=== PATIENT | female | born 1950 | race Caucasian/White ===

== ENCOUNTER 2017-10-18 19:51 | Emergency (ER) | payer OTHER ==
[~2017-10-18] VITALS: Ht 160 cm; Wt 81.7 kg
[~2017-10-18 19:51] MED LIST: BACTRIM DS TAB1 EACH PO; CYMBALTA30 MG PO; KLONOPIN0.5 MG PO; MACROBID 100 M100 M1 PO; MIRALAX17 GM PO; NEURONTIN 300300 M1 PO; TRAMADOL 50 MG50 MG PO
[2017-10-18] MEDS ORDERED: CYMBALTA60 MG PO (21:14)
[2017-10-18] MEDS ORDERED: ULTRAM 50MG TAB50 MG PO (21:15)
[2017-10-18] MEDS ORDERED: ZANTAC 150MG T150 MG PO (21:15)
[2017-10-18 21:28] LABS: HEMATOCRIT 43.8 % (37.0-47.0); HEMOGLOBIN 14.6 gm/dL (12.0-15.0); MCH 31.5 pg (26.0-34.0); MCHC 33.3 g/dL (28.0-37.0); MCV 94.5 fL (80.0-100.0); RBC 4.64 mil/uL (4.20-5.00); RDW 14.4 % (10.5-14.5); WBC 6.8 thou/uL (4.0-11.0)
[2017-10-18 21:34] LABS: CALCIUM 8.7 mg/dL (8.5-10.1); CREATININE 0.9 mg/dL (0.6-1.0); POTASSIUM 3.9 mmol/L (3.5-5.1)
[2017-10-18 21:40] LABS: ALBUMIN 3.6 g/dL (3.4-5.0); TOTAL BILIRUBIN 0.2 mg/dL (<0.1-1.0); TOTAL PROTEIN 6.9 g/dL (6.4-8.2)
[2017-10-18] MEDS ORDERED: ISENTRESS400 MG PER TUBE (21:49)
[2017-10-18] MEDS ORDERED: EMTRIVA200 MG PO (21:49)
[2017-10-18] MEDS ORDERED: TENOFOVIR DISO300 MG PO (21:49)
[2017-10-18 22:51] VITALS: BP 127/88
[2017-10-21 08:06] LABS: HIV ANTIBODY Non Reactive (Non Reactive)
== END 2017-10-18 22:51 | disposition home or self-care (01) ==
LOC: ER 19:51
PROVIDERS: Physician Assistant
DX: Z20.6 Contact with and (suspected) exposure to human immunodeficiency virus [HIV] (principal); F32.9 Major depressive disorder, single episode, unspecified

== ENCOUNTER 2018-05-16 03:47 | Inpatient (IN) | payer OTHER ==
[~2018-05-16] VITALS: Ht 160 cm; Wt 80.7 kg
[~2018-05-16 03:47] MED LIST changes: +CYMBALTA60 MG PO; +EMTRIVA200 MG PO; +ISENTRESS400 MG PER TUBE; +TENOFOVIR DISO300 MG PO; +ULTRAM 50MG TAB50 MG PO; +ZANTAC 150MG T150 MG PO
[2018-05-16 03:48] VITALS: BP 185/88
[2018-05-16] MEDS ORDERED: TYLENOL EXTRA500 MG PO (05:50)
[2018-05-16] MEDS ORDERED: TRAMADOL 50 MG50 MG PO (05:50)
[2018-05-16 06:39] VITALS: BP 144/80
[2018-05-16 07:20] VITALS: BP 144/78
--- NOTE | 2018-05-16 07:23 | NUR ---
ATTEMPTED TO CALL REPORT; PER [facility], "THEY ARE IN A ROOM AND WILL HAVE TO CALL ME BACK"
[2018-05-16 08:17] VITALS: BP 119/83
--- NOTE | 2018-05-16 09:52 | NUR ---
68 YO FEMALE ADMITTED BY W/C FROM ER. A&OX4, FIELD IV IN L FA INTACT. PT IS BLIND BILAT. HAS C/I DOG AND DAUGHTER AT THE BEDSIDE. C/O PAIN TO R LE AT 4/10 WHEN NOT MOVING. ORIENTED PT TO ROOM CALL LIGHT.
[2018-05-16 10:16] LABS: ABSOLUTE NEUTROPHILS 10.2 thou/uL (1.4-8.2); BASOPHILS 0.4 % (0.0-2.0); EOSINOPHILS 0.1 % (0.0-3.0); HEMATOCRIT 40.8 % (37.0-47.0); HEMOGLOBIN 13.6 gm/dL (12.0-15.0); LYMPHOCYTES 7.1 % (24.0-44.0); MCH 30.9 pg (26.0-34.0); MCHC 33.2 g/dL (28.0-37.0); MCV 92.9 fL (80.0-100.0); MONOCYTES 10.3 % (1.0-8.0); PLATELET COUNT 275 thou/uL (150-400); POLYS 82.1 % (36.0-66.0); RBC 4.39 mil/uL (4.20-5.00); RDW 14.2 % (10.5-14.5); WBC 12.4 thou/uL (4.0-11.0)
[2018-05-16 10:19] LABS: URINE BILIRUBIN NEGATIVE (Negative); URINE BLOOD TRACE (Negative); URINE CLARITY SL HAZY; URINE COLOR YELLOW; URINE GLUCOSE-RANDOM* NEGATIVE (Negative); URINE KETONES NEGATIVE (Negative); URINE LEUKOCYTES-REFLEX 3+ (Negative); URINE NITRITE-REFLEX NEGATIVE (Negative); URINE PROTEIN (DIPSTICK) NEGATIVE (Negative); URINE SPECIFIC GRAVITY 1.015 (1.005-1.035); URINE UROBILINOGEN 0.2 E.U./dl (0.2-1.0)
[2018-05-16 10:27] LABS: CALCIUM 8.7 mg/dL (8.5-10.1); CREATININE 0.8 mg/dL (0.6-1.0); MAGNESIUM 2.3 mg/dL (1.8-2.4); POTASSIUM 3.7 mmol/L (3.5-5.1)
[2018-05-16 10:57] LABS: FOLIC ACID 13.1 ng/mL (8.6-58.9)
[2018-05-16 11:08] LABS: SQUAMOUS 4-10 Moderate /LPF (0-3)
[2018-05-16 11:09] LABS: AMORPHOUS URATES Few /LPF (None Seen); CASTS None Seen /LPF (None Seen); URINE RBC 0-2 Rare /HPF (0-2); URINE WBC-REFLEX 6-15 Few /HPF (0-5)
--- NOTE | 2018-05-16 11:55 | NUR ---
ASSESSMENT-PT LIVES IN A HOUSE WITH HER GRANDSON. PT IS BLIND AND HAS HER SERVICE DOG NATHAN AT THE BEDSIDE WELL HER DTR. PT SAYS SHE PLANS TO HAVE A RAMP INSTALLED TO GET IN THE HOME BUT CURRENTLY HAS 5 STEPS WITH A RAIL TO ENTER. PT SAYS SHE HAS 2 FRIENDS THAT ASSIST HER BUT HAS LITTLE HELP FROM HER CHILDREN. PT USES [employer], THE BUS OR [facility] FOR TRANSPORTATION. PT HAS HAD [facility] IN THE PAST. PT SAYS SHE TRIPPED WHILE VACUUMING. FOLLOWING TO ASSIST WITH DC PLANNING. PT TO HAVE MRI TODAY.
[2018-05-16 16:41] VITALS: BP 138/84
[2018-05-16 19:19] VITALS: BP 125/79
[2018-05-17 03:47] VITALS: BP 140/77
--- NOTE | 2018-05-17 04:07 | NUR ---
GIVEN IV TORADOL, PO HYDROCODONE FOR RIGHT HIP PAIN WITH EFFECTIVE RELIEF OF DISCOMFORT. ABLE TO SLEEP THRU NIGHT, ASSIST IN TURNING IN BED TO USE BEDPAN. PULLED UP IN BED, REPOSITIONED X 2 STAFF ASSIST. DENIES NAUSEA.
[2018-05-17 07:10] VITALS: BP 96/63
--- NOTE | 2018-05-17 14:21 | NUR ---
PT IS INTERESTED IN A SKILLED FACILTY IN [place] WHERE HER NIECE WORKS. [facility]-[phone], FAX # [phone]. HER SISTER LIVES [place] FROM THE [facility]OSPITAL THERE TOO. PT IS ALSO INTERESTED IN [facility]. ASKED DC [employer]ERSON [employer] TO FAX REFERRALS TO BOTH FACILITIES.
--- NOTE | 2018-05-17 15:19 | NUR ---
FAXED REFERRAL TO [facility] LEFT MSG WITH JONE IN ADM. THAT REFERRAL SENT AND ANTICIPATE DC ON FRIDAY 05/19. FAXED REFERRAL TO [facility] SPOKE WITH JESUS MANUEL IN ADM. AND SHE RECEIVED REFERRAL AND WILL REVIEW. DCP TO FOLLOW.
[2018-05-17 16:16] VITALS: BP 116/67
--- NOTE | 2018-05-17 16:37 | NUR ---
PT. TO POSSIBLY DISCHARGE SUNDAY TO [facility] RN TO FAX DC ORDERS/SUMMARY TO [phone] AND CALL REPORT TO [phone]. FACILITY TO SET UP TRANSPORTATION. IF ANY QUESTIONS CALL BALL ASSEMBLER AND HAVE ADMITTING COORDINATOR MOVING PICTURE PRODUCER PAGED.
[2018-05-17 20:02] VITALS: BP 143/66
--- NOTE | 2018-05-18 00:26 | NUR ---
ASSUMED PT CARE 1900. PT ALERT AND ORIENTED. REASSESSMENT COMPLETED. IV DRESSING C/D/I, NO SIGNS OF INFILTRATION. PT AWARE OF LOCATION OF BEDSIDE TABLE WITH CUP AND PERSONAL BELONINGS. PT AWARE OF LOCATION OF CALL LIGHT. PT REPORTS MILD PAIN, WELL CONTROLLED WITH MEDICATION. PT ABLE TO MOVE AND REPOSITION WELL WITH MINIMAL PAIN. WILL CONTINUE POC UNTIL EOS.
[2018-05-18 05:53] VITALS: BP 117/72
[2018-05-18 07:08] VITALS: BP 110/72
--- NOTE | 2018-05-18 09:18 | NUR ---
PT IS A&OX4, CRUZ BLINDNESS ALL HER LIFE, NEEDS STAFF TO HELP ORDER, AMB STEADY INDEPENDENT BEFORE FALL, C/O PAIN IN RIGHT HIP AND LEG, WILL KEEP ON TOP OF PAIN, IS NOT IMPULSIVE, RA, ENCOURAGED HER TO CALL FOR ANY NEEDS, VERY FAINT BRUISING ON BLE, STATES SHE'S HAD SEVERAL FALLS D/T THINGS IN HER WAY OUTSIDE, NOT D/T CONFUSION.
[2018-05-18 16:27] VITALS: BP 100/64
[2018-05-18 19:13] VITALS: BP 98/64
--- NOTE | 2018-05-19 02:58 | NUR ---
A/O, calm and cooperative; vss, afebrile; c/o in right hip, pain medication given and worked; no n/v. bed rest, lab reviewed. Will keep monitoring.
[2018-05-19 04:15] VITALS: BP 131/69
[2018-05-19 09:32] VITALS: BP 121/68
[2018-05-19 17:31] VITALS: BP 110/66
[2018-05-19 18:59] VITALS: BP 122/71
--- NOTE | 2018-05-19 19:26 | NUR ---
ASSUMED PT CARE AT 0700H. PT A&O X4. PT IS BLIND. PT HAS NO S/S OF DISTRESS. PT ABLE TO VERBALIZE CONCERNS. PT ABLE TO AMBULATE FROM BED TO CHAIR TO EVEN BEDSIDE COMMODE. PT HAD PAIN ON R HIP AND ABLE TO TOLERATE MEDS AND MEALS. PT CONCERN OF LOOSE BOWEL AND REFUSED BOWEL MEDS. PT CALLS APPROPRIATELY. PT CONT TO BE MONITORED FOR SAFETY.
[2018-05-20 03:55] VITALS: BP 136/80
--- NOTE | 2018-05-20 05:37 | NUR ---
possible transfer to [facility] today. up to BSC x 1 assist. blind, cooperative with safety information given. PO PRN med effective for pain relief.
[2018-05-20 07:30] VITALS: BP 130/81
[2018-05-20] MEDS ORDERED: BENADRYL25 MG PO (09:08)
--- NOTE | 2018-05-20 16:28 | NUR ---
NOTIFIED BY JONE THAT THEY STILL CANNOT ACCEPT PT AT [facility]. DISCUSSED [facility] WITH PT BUT THEY WILL NOT HAVE A BED TILL SUNDAY. NOW PT WANTING TO GO DIRECTLY HOME WITH HH SERVICES. MICHELLE TX TO TRY PT ON THE STEPS TOMORROW AND IS SHE IS SAFE ON STEPS SHE WANTS TO GO HOME WITH [facility].
[2018-05-20 17:07] VITALS: BP 121/65
[2018-05-20 19:10] VITALS: BP 145/80
[2018-05-20 19:45] VITALS: BP 145/80
--- NOTE | 2018-05-21 01:41 | NUR ---
ASSUMED CARE 1900. VSS. ASSESSMENT CHARTED. PT C/O HEADACHE AND R HIP PAIN, PRN PAIN MEDS PER EMAR GIVEN. UP TO COMMOD STBY WITHOUT DIFFICULTY. PT HOPEFUL TO WORK WITH PT THIS AM IN HOPES TO GO HOME WITH HOME HEALTH. WILL CONTINUE TO MONITOR AND WITH POC.
[2018-05-21 04:42] VITALS: BP 149/87
--- NOTE | 2018-05-21 06:48 | NUR ---
PATIENT ARRIVED ON UNIT VIA W/C AT 0600 ACCOMPANIED BY 4E PERSONEL. ORIENTED TO ROOM. , PATIENT IS BLIND.
[2018-05-21 08:05] VITALS: BP 139/89
[2018-05-21 11:57] VITALS: BP 139/89
[2018-05-21] MEDS ORDERED: HYDROCODONE-AP1 EAC6 PO (13:32)
[2018-05-21] MEDS ORDERED: KEFLEX500 M1 PO (13:32)
--- NOTE | 2018-05-21 14:14 | NUR ---
dp sent hh orders to [facility] will call to ensure delivery. patient to dc today.
--- NOTE | 2018-05-21 14:18 | NUR ---
ASSUMED CARE OF PATIENT THIS MORNING. PATIENT IS A&OX4. SHE IS LEGALLY BLIND. [place] [facility] [place] SHE IS CONTINENT OF BOWEL AND BLADDER. NO ABNORMAL ASSESSMENT FINDINGS. SHE HAS A BIG BRUISE ON THE BACK OF HER RIGHT THIGH. SHE COMPLAINS OF PAIN FROM HER RIGHT THIGH DOWN TO HER BUTTOCKS AND WAS GIVEN PAIN MEDICATION WHICH PARTIALLY DECREASED THE PAIN. PATIENT WILL BE DISCHARGED THIS AFTERNOON HOME WITH HOME HEALTH WITH TWO PRECRIPTIONS. PATIENT IS CURRENTLY SITTING IN ON HER BED WITH CALL LIGHT WITHIN REACH. SHE CALLS OUT APPROPRIATELY FOR ASSISTANCE.
[2018-05-21] MEDS ORDERED: CYMBALTA60 MG PO (14:53)
[2018-05-21] MEDS ORDERED: ZANAFLEX2 MG PO (14:53)
--- NOTE | 2018-05-21 15:16 | NUR ---
PATIENT DISCHARGED HOME WITH HOME HEALTH AND 4 PRESCRIPTIONS. IV DC'D. DISCHARGE INSTRUCTIONS AND PRESCRIPTIONS REVIEWED WITH PATIENT AND PATIENT SIGNED IN AGREEANCE ON BOTH SIGNATURE PAGES. VOLUNTEER TRANSPORT WHEELED PATIENT TO [facility] WHERE HER DAUGHTER WAS THERE TO PICK HER UP.
--- NOTE | 2018-05-21 15:38 | NUR ---
I AGREE WITH NURSING ASSESSMENT DONE BY KYLIE/JAZZY.
== END 2018-05-21 15:41 | disposition home health service (06) | DRG 913 ==
LOC: ER 03:47 → 4E 06:19 → EROBS 06:19 → 4E 07:45 → SICU 05-21 06:34 → ENTRNSPT 05-21 14:43 → EDTRNSPTSTS 05-21 14:45 → SICU 05-21 15:41
PROVIDERS: Nurse Practitioner; ADMIT Hospitalist
DX: S76.891A Other injury of other specified muscles, fascia and tendons at thigh level, right thigh, initial encounter (principal); E43 Unspecified severe protein-calorie malnutrition; S76.311A Strain of muscle, fascia and tendon of the posterior muscle group at thigh level, right thigh, initial encounter; W01.0XXA Fall on same level from slipping, tripping and stumbling without subsequent striking against object, initial encounter; R26.2 Difficulty in walking, not elsewhere classified; F32.9 Major depressive disorder, single episode, unspecified; H54.3 Unqualified visual loss, both eyes; Y93.89 Activity, other specified; Y92.89 Other specified places as the place of occurrence of the external cause; Y99.8 Other external cause status; Z79.899 Other long term (current) drug therapy; Z88.0 Allergy status to penicillin
CPT/HCPCS: 10084

== ENCOUNTER 2018-07-26 12:24 | Emergency (ER) | payer OTHER ==
[~2018-07-26] VITALS: Ht 160 cm; Wt 81.7 kg
[~2018-07-26 12:24] MED LIST changes: +BENADRYL25 MG PO; +HYDROCODONE-AP1 EAC6 PO; +KEFLEX500 M1 PO; +TYLENOL EXTRA500 MG PO; +ZANAFLEX2 MG PO
[2018-07-26] MEDS ORDERED: NAPROXEN375 MG PO (13:52)
[2018-07-26] MEDS ORDERED: TRAMADOL 50 MG50 MG PO (13:52)
[2018-07-26 14:09] VITALS: BP 143/84
== END 2018-07-26 13:55 | disposition home or self-care (01) ==
LOC: ER 12:24
DX: S76.311A Strain of muscle, fascia and tendon of the posterior muscle group at thigh level, right thigh, initial encounter (principal); S70.01XA Contusion of right hip, initial encounter; Z88.0 Allergy status to penicillin; F32.9 Major depressive disorder, single episode, unspecified; W18.39XA Other fall on same level, initial encounter; Y92.89 Other specified places as the place of occurrence of the external cause; Y93.89 Activity, other specified; Y99.8 Other external cause status

== ENCOUNTER 2019-08-23 19:54 | Emergency (ER) | payer OTHER ==
[~2019-08-23] VITALS: Ht 154.9 cm; Wt 77.1 kg
[~2019-08-23 19:54] MED LIST changes: +NAPROXEN375 MG PO
[2019-08-23] MEDS ORDERED: TRAMADOL 50 MG50 MG PO (20:06)
[2019-08-23] MEDS ORDERED: NEXIUM40 MG PO (20:06)
[2019-08-23 21:12] VITALS: BP 110/76
== END 2019-08-23 21:14 | disposition home or self-care (01) ==
LOC: ER 19:54
DX: H74.8X1 Other specified disorders of right middle ear and mastoid (principal); Z79.899 Other long term (current) drug therapy

== ENCOUNTER 2020-03-07 03:49 | Emergency (ER) | payer OTHER ==
[~2020-03-07] VITALS: Ht 160 cm; Wt 81.7 kg
[~2020-03-07 03:49] MED LIST changes: +NEXIUM40 MG PO
[2020-03-07] MEDS ORDERED: [UNRECOGNIZED DRUG - CODE] PO (03:57)
[2020-03-07] MEDS ORDERED: MIRAPEX 0.250.25 M1 PO (03:58)
[2020-03-07 05:11] LABS: URINE BILIRUBIN NEGATIVE (Negative); URINE BLOOD TRACE (Negative); URINE CLARITY CLEAR; URINE COLOR YELLOW; URINE GLUCOSE-RANDOM* NEGATIVE (Negative); URINE KETONES NEGATIVE (Negative); URINE LEUKOCYTES-REFLEX 1+ (Negative); URINE NITRITE-REFLEX NEGATIVE (Negative); URINE PROTEIN (DIPSTICK) NEGATIVE (Negative); URINE SPECIFIC GRAVITY 1.025 (1.005-1.035); URINE UROBILINOGEN 0.2 E.U./dl (0.2-1.0)
[2020-03-07] MEDS ORDERED: KEFLEX500 M1 PO (05:42)
[2020-03-07 05:47] LABS: SQUAMOUS 0-3 Few /LPF (0-3)
[2020-03-07 05:48] LABS: BACTERIA-REFLEX 1-9 Few /HPF (None Seen); CASTS None Seen /LPF (None Seen); CRYSTALS None Seen /LPF (None Seen); MUCUS 0-3 Light strn/LPF (None Seen); URINE RBC 0-2 Rare /HPF (0-2); URINE WBC-REFLEX 0-5 Rare /HPF (0-5)
[2020-03-07] MEDS ORDERED: TESSALON PERLE100 MG PO (05:51)
[2020-03-07 06:11] VITALS: BP 113/90
== END 2020-03-07 06:20 | disposition home or self-care (01) ==
LOC: ER 03:49
PROVIDERS: Emergency Medicine
DX: R05 Cough (principal); N39.0 Urinary tract infection, site not specified; Z79.899 Other long term (current) drug therapy; Z20.828 Contact with and (suspected) exposure to other viral communicable diseases